=== PATIENT | male | born 1960 | race Caucasian/White ===

== ENCOUNTER 2017-08-03 03:37 | Emergency (ER) | payer OTHER ==
[~2017-08-03] VITALS: Ht 172.7 cm; Wt 108.9 kg
[~2017-08-03 03:37] MED LIST: CHOL100027 PO; CYAN10005 PO; GABA-113 PO; KETO2SHA TOP; NAPR1TAB9 PO; ONDA4TAB4 PO; SERT-234 PO; SIMV10TA2 PO
[2017-08-03 03:41] VITALS: TEMP 36.5; Ht 172.7 cm; Wt 108.9 kg
[2017-08-03] MEDS ORDERED: ACETAMINOPHEN 500 MG TAB PO STA (04:01)
[2017-08-03] MEDS ORDERED: IBUPROFEN 600 MG TAB PO STA (04:01)
[2017-08-03] MEDS ORDERED: TAMS0.4C38 PO (04:51)
[2017-08-03] MEDS ORDERED: ONDA4TAB46 PO (04:51)
[2017-08-03] MEDS ORDERED: NORCO 5/325MG HOME PACK PO ONE (05:30)
[2017-08-03 05:39] VITALS: BP 139/85; PULSE 75; O2SAT 96
--- NOTE | 2017-08-03 06:46 | DIAGNOSTIC IMAGING REPORT ---
R SHOULDER MIN 2 VIEWS ROUTINE HISTORY: 57 years-old Male Fall. Right shoulder pain acute right shoulder pain status post fall COMPARISON: Chest radiographs 05/24/2014 TECHNIQUE: 3 views of the right shoulder FINDINGS: Mild glenohumeral and mild to moderate acromioclavicular degenerative changes. No acute fracture or dislocation. No loose body. Soft tissues appear unremarkable. IMPRESSION: Degenerative changes as above without acute fracture or dislocation. The above report was generated using voice recognition software. It may contain grammatical, syntax or spelling errors. Electronically signed by: Sarkis Ramirez M.D. 08/03/2017 6:45 AM Dictated Date/Time: 08/03/2017 6:43 AM
--- NOTE | 2017-08-04 02:16 | EMERGENCY ROOM VISIT NOTE ---
ED Visit Note First contact with patient: 03:50 CHIEF COMPLAINT: Shoulder pain HISTORY OF PRESENT ILLNESS: This 57-year-old male patient presents to the emergency department complaining of pain in the right shoulder that began about one hour ago. The patient was at work when he slipped, fell, and struck his right shoulder. There is limitation of motion of the arm because of the pain. The pain is moderate, constant and increases with motion of the hand and arm. The patient states the pain is dull and 6/10. The patient has taken nothing for relief of the pain. No previous significant previous shoulder disease or injury. No numbness or tingling. No neck and not back pain. No chest pain or shortness of breath. No abdominal pain or nausea/vomiting. No cough. He is left -hand dominant. REVIEW OF SYSTEMS: A 6 system review of systems was performed with positives and pertinent negatives in the HPI. ALLERGIES: No known medication allergies MEDICATIONS: No chronic medications PMH: Otherwise healthy SOCIAL HISTORY: Employed and lives locally PHYSICAL EXAM: Vital Signs: Reviewed nurse's notes, vital signs stable. GENERAL : White male, in no acute distress, but appears to be in pain, well-developed, well-nourished. MUSCULOSKELETAL: There is no deformity in the contour of the right shoulder and there are no christy deformities noted. There is no sulcus sign. There is tenderness over the proximal humerus. The patient's range of motion is limited to external rotation and abduction. Supraspinatus strength 3/ 5. There is mild clavicle tenderness. No tenderness of the humerus, elbow, wrist, or hand. Scale Mechanic strength 5/5. Radial pulse 2+. NECK: No tenderness to palpation over the cervical spine. HEART: Regular rate and rhythm without murmurs gallops or rubs. LUNGS: Clear to auscultation bilaterally without wheezes, rales or rhonchi. No accessory muscle use. No retractions. NEURO: The patient is alert and oriented to person, place, and time. Normal sensation to light and sharp touch. Capillary refill less than 2 seconds. R SHOULDER MIN 2 VIEWS ROUTINE HISTORY: 57 years-old Male Fall. Right shoulder pain acute right shoulder pain status post fall COMPARISON: Chest radiographs 05/24/2014 TECHNIQUE: 3 views of the right shoulder FINDINGS: Mild glenohumeral and mild to moderate acromioclavicular degenerative changes. No acute fracture or dislocation. No loose body. Soft tissues appear unremarkable. IMPRESSION: Degenerative changes as above without acute fracture or dislocation. EMERGENCY DEPARTMENT COURSE: Physical exam and history were performed. Nursing notes and EMR were reviewed. The patient appears to have injured himself after falling just prior to arrival. X-ray was obtained. The patient was given ibuprofen and Tylenol here in the department. He is placed in an arm sling. X-ray does not show evidence of acute fracture or dislocation. His exam is more consistent with a rotator cuff injury, and he will need to follow with Workmen's Compensation orthopedics for further care and management. He will be given a home pack of Vicodin and invited back to the ER with any new, worsening, or concerning symptoms. Problem List Medical Problems: (1) Anxiety Status: Chronic (2) Cerebral palsy Status: Chronic (3) Hyperlipidemia Status: Chronic Surgical Problems: (1) History of cholecystectomy Status: Resolved (2) History of herniorrhaphy Status: Resolved (3) History of repair of hiatal hernia Permanent Comment: X 2 Status: Resolved (4) Hx of cardiac catheterization Status: Resolved Current/Historical Medications Scheduled Cholecalciferol (Vitamin D 1000 Unit), 3,000 INTER.UNIT PO DAILY Cyanocobalamin (Vitamin B-12), 1,000 MCG PO DAILY Sertraline (Zoloft), 100 MG PO DAILY Simvastatin (Zocor), 10 MG PO DAILY Tamsulosin Hcl (Flomax), 0.4 MG PO DAILY Scheduled PRN Ondansetron Hcl (Zofran), 4 MG PO Q8 PRN for Nausea Allergies Coded Allergies: Iodinated Diagnostic Agents (Verified Allergy, Intermediate, RASH, 08/03/17 ) Vital Signs Date Time Temp Pulse Resp B/P (MAP) Pulse Ox O2 Delivery O2 Flow Rate FiO2 08/03/17 05:39 75 18 139/85 96 Room Air 08/03/17 03:41 36.5 80 18 153/93 95 Room Air Medications Administered Medications (Trade) Dose Ordered Sig/Gabriel Route Start Time Stop Time Status Last Admin Dose Admin Acetaminophen (Tylenol Tab) 1,000 mg NOW STAT PO 08/03/17 04:01 08/03/17 04:03 DC 08/03/17 04:10 1,000 MG Ibuprofen (Motrin Tab) 600 mg NOW STAT PO 08/03/17 04:01 08/03/17 04:03 DC 08/03/17 04:09 600 MG Acetaminophen/ Hydrocodone Bitart ([place] 5/325mg Home Pack) 1 homepack UD ONCE PO 08/03/17 05:30 08/03/17 05:31 DC 08/03/17 05:32 1 HOMEPACK Departure Information Impression Primary Impression: Fall Additional Impression: Injury of right shoulder Dispostion Home / Self-Care Condition GOOD Referrals Moess Bajwa MD Forms HOME CARE DOCUMENTATION FORM, Work Instructions, Additional Instructions: Patient was seen and evaluated today in the emergency department fo medical care. Return to work at the recommendation of Workmen' Compensation. IMPORTANT VISIT INFORMATION Patient Instructions My [facility] Additional Instructions You were seen and evaluated today on an emergency basis only. This is not a substitute for, or an effort to provide, complete comprehensive medical care. It is not possible to recognize and treat all injuries or illnesses in a single emergency department visit. For this reason it is recommended that you followup with your Workmen's Compensation provider in the next 2-3 days for recheck of your condition. We have provided you the information for the on-call orthopedist, Dr Bajwa , as a convenience. For baseline pain relief you may alternate ibuprofen and acetaminophen every 4 hours for pain control. Take 600 mg ibuprofen (Advil) and then 4 hours later take 1000 mg acetaminophen (Tylenol). Do not take more than 3000 mg acetaminophen in a single day. [place] (hydrocodone/acetaminophen) 5/325 mg every 6 hours as needed for worsening breakthrough pain. Do not drink or drive on [place]. This medication will likely make you tired. Do not take [place] and Tylenol at the same time as both contain acetaminophen. [place] may cause constipation. You may wish to take an [id number] stool softener like Colace if this occurs. Wear your arm sling for comfort You are welcome to return to the emergency department anytime with new, worsening, or concerning symptoms. Work Instructions Additional Work Instructions: Patient was seen and evaluated today in the emergency department for medical care. Return to work at the recommendation of Workmen's Compensation. Problem Qualifiers
== END 2017-08-03 05:34 | disposition home or self-care (01) ==
LOC: C.EDB 03:38
DX: S49.91XA Unspecified injury of right shoulder and upper arm, initial encounter (principal); W01.0XXA Fall on same level from slipping, tripping and stumbling without subsequent striking against object, initial encounter; Y92.89 Other specified places as the place of occurrence of the external cause; Y99.0 Civilian activity done for income or pay; F41.9 Anxiety disorder, unspecified; G80.9 Cerebral palsy, unspecified; E78.5 Hyperlipidemia, unspecified; Z79.899 Other long term (current) drug therapy

== ENCOUNTER → 2017-08-20 | Day surgery (SDC) | payer OTHER ==
[2017-08-07 12:34] LABS: BASO % 0.2 %; BASO ABS # 0.01 K/uL (0-0.2); EOS ABS # 0.18 K/uL (0-0.5); HEMATOCRIT 44.2 % (42-52); HEMOGLOBIN 14.7 g/dL (14.0-18.0); IG# 0.02 K/uL (0.00-0.02); LYMPH % 33.9 %; LYMPH ABS # 2.05 K/uL (1.2-3.4); MEAN CORPUSCULAR HEMOGLOBIN 28.9 pg (25-34); MEAN CORPUSCULAR HGB CONC 33.3 g/dl (32-36); MEAN PLATELET VOLUME 9.5 fL (7.4-10.4); MONO % 10.6 %; MONO ABS # 0.64 K/uL (0.11-0.59); NEUT ABS # 3.15 K/uL (1.4-6.5); PLATELET COUNT 185 K/uL (130-400); RED CELL DISTRIBUTION WIDTH CV 13.9 % (11.5-14.5); RED CELL DISTRIBUTION WIDTH SD 44.6 fL (36.4-46.3); WHITE BLOOD COUNT 6.05 K/uL (4.8-10.8)
[2017-08-07 12:54] LABS: BLOOD UREA NITROGEN 15 mg/dl (7-18); CALCIUM 9.1 mg/dl (8.5-10.1); CARBON DIOXIDE 28 mmol/L (21-32); CREATININE 0.97 mg/dl (0.60-1.40); GLUCOSE 92 mg/dl (70-99); POTASSIUM 4.1 mmol/L (3.5-5.1); SODIUM 138 mmol/L (136-145)
[2017-08-11 07:58] VITALS: Ht 172.7 cm; Wt 106.8 kg
[~2017-08-20] VITALS: Ht 172.7 cm; Wt 106.8 kg
[~2017-08-20] MED LIST changes: +ATROPINE SULFATE 0.1 MG/ML 5ML SYR IV PRN; +BUPIVACAINE/EPINEPHRINE 0.25% 1:200,000 30 ML VIAL ONE; +CEFAZOLIN 2000MG IV PUSH 10 ML IV SCH; +DEXAMETHASONE SOD INJ 4 MG/ML VIAL ONE; +DIGE1CAP10 PO; +EpHEDrine SULFATE INJ 50 MG/ML AMP IV PRN; +EpHEDrine SULFATE INJ 50 MG/ML AMP ONE; +EpINEphrine INJ 1MG/ML AMP 1 MG/ML AMP ONE; +FENTANYL CITRATE INJ 50 MCG/1 ML 2 ML VIAL IV PRN; +FENTANYL CITRATE INJ 50 MCG/1 ML 2 ML VIAL ONE; -GABA-113 PO; +KETO10TA PO; -KETO2SHA TOP; +KETOROLAC TROMETHAMINE 30 MG/ML VIAL IV. PRN; +KETOROLAC TROMETHAMINE 30 MG/ML VIAL ONE; +LACTATED RINGER'S 1000ML 1,000 ML IV SCH; +LIDOCAINE HCL 2% 2 ML VIAL (20MG/ML) ONE; +MIDAZOLAM HCL 1 MG/ML 2ML VIAL ONE; -NAPR1TAB9 PO; -ONDA4TAB4 PO; +ONDA4TAB46 PO; +ONDANSETRON INJ 2 MG/ML 2 ML VIAL IV PRN; +ONDANSETRON INJ 2 MG/ML 2 ML VIAL ONE; +OXYC-57 PO; +OXYCODONE/ACETAMINOPHEN 5-325 TAB PO PRN; +PHENYLEPHRINE HCL INJ 10 MG/ML VIAL ONE; +PROPOFOL IV EMULSION 10 MG/ML 20 ML VIAL IV ONE; +ROPIVACAINE 0.5% 5 MG/ML 30 ML VIAL ONE; +SODIUM CHLORIDE 0.9% 1000ML 1,000 ML IV SCH; +TAMS0.4C38 PO
--- NOTE | 2017-08-20 12:32 | History & Physical Bridge - [place] ---
H&P Re-Evaluation Bridge Note: I have examined the patient, reviewed the History & Physical and in the interval since the performance of the History & Physical I have noted the following changes of clinical significance: No changes noted
--- NOTE | 2017-08-20 15:28 | [facility] Post Operative Brief Note ---
Immediate Operative Summary Operative Date Aug 20, 2017. Pre-Operative Diagnosis Right Shoulder Full Thickness Rotator Cuff Tear Post-Operative Diagnosis same Procedure(s) Performed Right Shoulder Arthroscopy, Medium Rotator Cuff Repair, Biceps Tenodesis, Acromioplasty Surgeon Dr. 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
--- NOTE | 2017-08-20 15:36 | Discharge Instructions-SurgCtr ---
Discharge Instructions Date of Service Aug 20, 2017. Visit Reason for Visit: Right Shoulder Full Thickness Rotator Cuff Tear Discharge Discharge Diagnosis / Problem: SAME ABOVE Discharge Goals Goal(s): Decrease discomfort, Improve function Activity Recommendations Activity Limitations: as noted below Lifting Limitations: until after follow-up appointment (NO LIFTING WITH RIGHT ARM ) Exercise/Sports Limitations: until after follow-up appointment Shower/Bathe: tomorrow Anesthesia . Post Anesthesia Instructions: If you have had General Anesthesia or IV Sedation: * Do not drive today. * Resume driving when surgeon permits. * Do not make important decisions or sign legal documents today. * Call surgeon for: 1. Temperature elevations greater than 101 degrees F. 2. Uncontrollable pain. 3. Excessive bleeding. 4. Persistent nausea and vomiting. 5. Medication intolerance (nausea, vomiting or rash). * For nausea and vomiting use only clear liquids such as: tea, soda, bouillon until nausea subsides, then gradually increase diet as tolerated. * If you have any concerns or questions, call your surgeon's office. If physician is unavailable and it is an emergency, call 911 or go to the nearest emergency room. . Instructions / Follow-Up Instructions / Follow-Up MEDICATIONS: * Resume previous medications unless instructed otherwise by your surgeon. * Always take pain medication on a full stomach or with food to avoid upset stomach. * Do not drink alcohol or drive while taking narcotics. * Ibuprofen or Tylenol may be taken if narcotic not needed. SPECIAL CARE INSTRUCTIONS: __ None _X_ Keep extremity elevated and iced x 48 hours; apply ice 20-30 minutes 8-10 times/day. May remove at night. __ Sling __24 hrs/day __ Remove at night _X_ Shoulder Immobilizer (MAY REMOVE AFTER 48 HOURS ONLY TO SHOWER) _X_ 24 hrs/day __ Remove at night _X_ Dressing __ Maintain until seen in office, may shower with plastic over site _X_ Remove dressings in 24-48 hours and then may shower _X_ Cover incisions with band-aids after showering __ Do not remove steri-strips Call physician if chills or temperature rises above 102 degrees or pain unrelieved by prescribed pain medications at . . Diet Recommendations Home Diet: no limitations Fluid Restriction: None Procedures Procedures Performed: Right Shoulder Arthroscopy, Medium Rotator Cuff Repair, Biceps Tenodesis, Acromioplasty Pending Studies Studies pending at discharge: no Work Instructions Return To Work: after follow-up Medical Emergencies . Who to Call and When: Medical Emergencies: If at any time you feel your situation is an emergency, please call 911 immediately. . Non-Emergent Contact Non-Emergency issues call your: Primary Care Provider Call Non-Emergent contact if: you have a fever, temperature is above 101.5 . . "Provider Documentation" section prepared by Collin Dasilva. .
[2017-08-20 16:34] VITALS: TEMP 36.1
[2017-08-20 17:04] VITALS: BP 122/77; PULSE 105; O2SAT 94
--- NOTE | 2017-08-20 17:10 | Anesthesia Progress Nt - [facility] ---
Anesthesia Post Op Note Date & Time Aug 20, 2017 at 17:09 Vital Signs Pain Intensity: 0 Vital Signs Past 12 Hours Date Time Temp Pulse Resp B/P (MAP) Pulse Ox O2 Delivery O2 Flow Rate FiO2 08/20/17 17:04 105 122/77 (92) 94 Room Air 08/20/17 16:34 36.1 99 20 120/72 (88) 88 Nasal Cannula 1 08/20/17 16:21 126/61 08/20/17 16:20 99 10 94 08/20/17 16:20 100 10 08/20/17 16:20 20 95 Nasal Cannula 4 08/20/17 16:16 132/80 08/20/17 16:15 99 12 08/20/17 16:15 99 12 96 08/20/17 16:11 124/78 08/20/17 16:10 102 18 08/20/17 16:10 101 18 99 08/20/17 16:06 117/63 08/20/17 16:05 106 13 08/20/17 16:05 107 13 93 08/20/17 16:01 132/71 08/20/17 16:00 105 19 99 08/20/17 16:00 105 19 08/20/17 15:56 129/84 08/20/17 15:55 105 21 08/20/17 15:55 106 21 97 08/20/17 15:51 128/83 08/20/17 15:50 101 21 98 08/20/17 15:50 101 21 08/20/17 15:49 105 21 97 08/20/17 15:49 104 21 08/20/17 15:46 133/76 08/20/17 15:44 104 23 08/20/17 15:44 104 23 94 08/20/17 15:41 153/79 08/20/17 15:39 115 22 08/20/17 15:39 113 22 93 08/20/17 15:38 17 08/20/17 15:38 111 17 08/20/17 15:35 36.1 113 20 134/78 93 Mask 8 08/20/17 15:35 134/78 08/20/17 13:33 78 08/20/17 13:33 78 16 98 08/20/17 13:32 79 08/20/17 13:32 78 13 99 08/20/17 13:31 140/86 08/20/17 13:27 79 19 100 08/20/17 13:27 80 08/20/17 13:26 146/100 08/20/17 13:23 71 22 100 08/20/17 13:23 72 08/20/17 13:20 137/88 08/20/17 13:18 73 0 97 08/20/17 13:18 72 08/20/17 13:13 74 0 96 08/20/17 13:13 71 08/20/17 13:08 69 08/20/17 13:08 69 0 96 08/20/17 13:03 72 0 96 08/20/17 13:03 71 08/20/17 12:58 69 08/20/17 12:58 70 0 95 08/20/17 12:53 68 0 95 08/20/17 12:53 70 08/20/17 12:48 71 0 95 08/20/17 12:48 69 08/20/17 12:43 70 08/20/17 12:43 70 0 94 08/20/17 12:38 73 08/20/17 12:38 74 0 96 08/20/17 11:14 36.9 76 16 148/103 (118) 94 Room Air Notes Mental Status: alert / awake / arousable, participated in evaluation Pt Amnestic to Procedure: Yes Nausea / Vomiting: adequately controlled Pain: adequately controlled Airway Patency, RR, SpO2: stable & adequate BP & HR: stable & adequate Hydration State: stable & adequate Anesthetic Complications: no major complications apparent Patient successfully weaned off of oxygen. SpO2 94% on RA (his baseline). Patient walking to bathroom. No complaints of pain. VSS. No complications.
--- NOTE | 2017-08-21 08:58 | OPERATIVE REPORT ---
DATE OF OPERATION: 08/20/2017 PREOPERATIVE DIAGNOSIS: Large right rotator cuff tear. POSTOPERATIVE DIAGNOSIS: Same. PROCEDURE: Right shoulder diagnostic arthroscopy with limited debridement, acromioplasty, large right rotator cuff repair and arthroscopic biceps tenodesis. SURGEON: Gianni Chowdhury DO CHIMNEY REPAIRER: Collin Dasilva PA-C, whose assistance was necessary for positioning the arm, helping with arthroscopic instrumentation, and closure. ANESTHESIA: General with a right interscalene nerve block. COMPLICATIONS: None. CONDITION: Stable to PACU. 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 About 2 weeks ago, he slipped on some ice and fell directly onto his right shoulder. MRI and clinical examination were diagnostic for a large acute rotator cuff tear. After failing conservative treatment, he elected to undergo arthroscopy. DESCRIPTION OF PROCEDURE: On 08/20/2017, he arrived at [facility] for the above procedure. He was seen in the preoperative holding area and the operative extremity was identified and signed. He was given preoperative antibiotics and a right interscalene nerve block. He was taken back to the operating room, laid on the table in supine position and put under general anesthesia. He was then put into the beach chair position. The right shoulder was prepped and draped in sterile fashion. Time-out was done, and the patient's operative extremity was properly identified. A scope was introduced in the posterior portal. Diagnostic arthroscopy showed no cartilage damage to the humeral head or the glenoid. A little fraying of the anterior labrum. The biceps tendon was slightly frayed. There was a tear of the entire supraspinatus and part of the infraspinatus. It was an irregular tear and it did split up into the posterior interval. An anterior portal was made. A shaver was used to do a limited debridement of the intraarticular structures and the biceps tendon was arthroscopically tenotomized for later tenodesis. A scope was then put into the subacromial space. A lateral portal was made. A shaver was used to do a complete subacromial and subdeltoid bursectomy. An ablator was used to tease the coracoacromial ligament off the undersurface of the acromion and a 5-0 socorro was used to complete an acromioplasty of a large Bigliani type 3 acromion. A shaver was used to remove any excess debris and attention was turned to the rotator cuff. An additional anterolateral portal was made and Marleen cannulas were placed in each of the lateral portals. It was kind of a 2-part tear. The upper border of infraspinatus was detached. The supraspinatus was then detached ____ near the infraspinatus that extended up the posterior interval. I decided to repair the infraspinatus with an Arthrex modified SpeedBridge configuration using a 4.75-mm BioComposite SwiveLock suture anchor and FiberTapes. This gave a nice knotless bridge repair on the infraspinatus. Attention was then turned to the supraspinatus. The greater tuberosity was prepared with a ring curette and a microfracture. The supraspinatus was then repaired with an Arthrex SpeedBridge configuration using BioComposite SwiveLock suture anchors and FiberTape. The posterior interval was then repaired with some margin convergence sutures. This all gave a nice anatomic repair of the rotator cuff. Multiple pictures were taken. The scope was placed back into the glenohumeral joint and the articular margin of the rotator cuff had been restored. To note, the long head of the biceps tendon was tagged with an Arthrex FiberLink suture and incorporated into the anteromedial anchor to complete an arthroscopic biceps tenodesis. Arthroscopic instruments were removed from the shoulder. Portal sites were closed with 3-0 nylon. He was then placed in a soft dressing and an abduction arm sling. He was then extubated, transferred to a litter and taken to the postanesthesia care unit in stable condition. He tolerated the procedure well. I attest to the content of the Intraoperative Record and any orders documented therein. Any exception s are noted below.
== END | disposition home or self-care (01) ==
LOC: X.SURG 11:03
PROVIDERS: ATTEND Orthopaedic Surgery
DX: S46.011A Strain of muscle(s) and tendon(s) of the rotator cuff of right shoulder, initial encounter (principal); W00.0XXA Fall on same level due to ice and snow, initial encounter; Y93.01 Activity, walking, marching and hiking; Y99.0 Civilian activity done for income or pay